=== PATIENT | female | born 1935 | race Caucasian/White ===

== ENCOUNTER 2016-05-29 11:41 | Day surgery (SDC) | payer OTHER ==
[~2016-05-29] VITALS: Ht 165.1 cm; Wt 88.9 kg
[~2016-05-29 11:41] MED LIST: MULTI-DAY VITA1 EACH PO
[2016-05-29 12:08] VITALS: BP 160/88
[2016-05-29 17:00] VITALS: BP 151/70
== END 2016-05-29 17:00 | disposition home or self-care (01) ==
LOC: SDC 11:41
PROC: 08CE3ZZ Extirpation of Matter from Right Retina, Percutaneous Approach (ICD-10-PCS; principal; 2016-05-29)
PROC: 08B43ZZ Excision of Right Vitreous, Percutaneous Approach (ICD-10-PCS; principal; 2016-05-29)
DX: H35.341 Macular cyst, hole, or pseudohole, right eye (principal); M19.90 Unspecified osteoarthritis, unspecified site
CPT/HCPCS: J0690; J2405; J3010; J3300